=== PATIENT | male | born 1970 | race Caucasian/White ===

== ENCOUNTER 2018-08-21 08:31 | Day surgery (SDC) | payer BC ==
[2018-08-18 16:04] VITALS: BMI 19.6
[~2018-08-21 08:31] MED LIST: LACTATED RINGERS 1,000 ML IV SCH; LIDOCAINE 1% 20 ML VIAL (10MG/ML) FOR IV START INTRADERMA PRN
[2018-08-21 08:45] VITALS: RESP 16; TEMP 98.8
[2018-08-21] MEDS ORDERED: PROPOFOL 10 MG/ML 20 ML VIAL IV ONE (09:09)
--- NOTE | 2018-08-21 09:09 | P.GSHP ---
History of Present Illness H&P Date: 08/21/18 Chief Complaint: Screening colonoscopy This a 48-year-old male who presents today for screening colonoscopy. He's never had a colonoscopy before. He denies any significant GI complaints. He states he has had some diarrhea. Past Medical History Additional Past Medical History / Comment(s): abd. pain, bloating after eating, no appetite, 10# weight loss over past year History of Any Multi-Drug Resistant Organisms: None Reported Past Surgical History: No Surgical Hx Reported Additional Past Anesthesia/Blood Transfusion Reaction / Comment(s): no family problems w/anesthesia Smoking Status: Current every day smoker - Past Family History Mother Family Medical History: No Reported History Medications and Allergies Home Medications Medication Instructions Recorded Confirmed Type Multivitamins, Thera [Multivitamin 1 tab PO DAILY 08/18/18 08/21/18 History (formulary)] Allergies Allergy/AdvReac Type Severity Reaction Status Date / Time No Known Allergies Allergy Verified 08/21/18 08:44 Surgical - Exam Vital Signs Temp Pulse Resp BP Pulse Ox 98.8 F 64 16 155/94 99 08/21/18 08:41 08/21/18 08:41 08/21/18 08:41 08/21/18 08:41 08/21/18 08:41 - General well developed, well nourished, no distress - Eyes PERRL - ENT normal pinna - Neck no masses - Respiratory normal expansion - Cardiovascular Rhythm: regular - Abdomen Abdomen: soft, non tender Assessment and Plan Assessment: We will perform screening colonoscopy.
--- NOTE | 2018-08-21 09:26 | P.OP ---
Date of Procedure: 08/21/18 Preoperative Diagnosis: Screening colonoscopy Postoperative Diagnosis: Normal colonoscopy Procedure(s) Performed: Colonoscopy Anesthesia: MAC Surgeon: Delfin Solis Pathology: none sent Condition: stable Disposition: PACU Description of Procedure: PROCEDURE: The patient was placed on the endoscopy table in the lateral position. Digital rectal examination was performed which revealed no abnormalities. The prostate was symmetrical without nodules. Flexible colonoscope was then placed in the patient's anus and passed throughout the entire colon. The ileocecal valve was visualized. The cecum, ascending, transverse, descending and sigmoid colon were normal. The rectum was normal as well. There were no masses, polyps or diverticula noted in the entire colon. SUMMARY OF FINDINGS: Normal colonoscopy.
[2018-08-21 09:44] VITALS: BP 135/81; PULSE 60
== END 2018-08-21 09:58 | disposition home or self-care (01) ==
LOC: ORWHC2ENDO 08:31
PROVIDERS: ATTEND Surgery
DX: R19.7 Diarrhea, unspecified (principal); R10.9 Unspecified abdominal pain; R14.0 Abdominal distension (gaseous); R63.0 Anorexia; Z68.1 Body mass index [BMI] 19.9 or less, adult; F17.200 Nicotine dependence, unspecified, uncomplicated
CPT/HCPCS: 45378; J2704